=== PATIENT | female | born 1945 | race Two or more races ===

== ENCOUNTER → 2018-02-26 | Emergency (ER) | payer OTHER ==
[~2018-02-26] VITALS: Ht 157.5 cm; Wt 102.5 kg
[~2018-02-26] MED LIST: ADEMPAS2.5 MG; ARICEPT10 MG; ASPIR 8181 MG; CLONAZEPAM2 M1; HUMULIN 70100 UNIT/2; HYDROCHLOROTHIA25 MG; LANTUS SOL100 UNIT/1; MICARDIS20 MG; NORVASC2.5 M1; PROZAC10 MG; SIMVASTATIN20 MG
== END | disposition home or self-care (01) ==
LOC: ER 19:43
DX: J45.998 Other asthma (principal); J11.1 Influenza due to unidentified influenza virus with other respiratory manifestations

== ENCOUNTER 2018-03-02 16:05 | Inpatient (IN) | payer OTHER ==
[~2018-03-02] VITALS: Ht 167.6 cm; Wt 102.5 kg
[2018-03-10] MEDS ORDERED: ZANTAC150 MG PO (16:07)
[2018-03-10] MEDS ORDERED: MEDROLPACK PO (16:07)
== END 2018-03-10 16:30 | disposition home or self-care (01) | DRG 202 ==
LOC: ER 16:05 → MEDI 03-03 11:54 → SEC-K 03-03 11:54 → MEDI 03-03 14:01
PROC: 3E0F7GC Introduction of Other Therapeutic Substance into Respiratory Tract, Via Natural or Artificial Opening (ICD-10-PCS; principal; 2018-03-03)
PROC: B246ZZZ Ultrasonography of Right and Left Heart (ICD-10-PCS; 2018-03-03)
DX: J45.41 Moderate persistent asthma with (acute) exacerbation (principal); J44.1 Chronic obstructive pulmonary disease with (acute) exacerbation; J44.0 Chronic obstructive pulmonary disease with (acute) lower respiratory infection; J20.9 Acute bronchitis, unspecified; G47.33 Obstructive sleep apnea (adult) (pediatric); I27.29 Other secondary pulmonary hypertension; R09.02 Hypoxemia; F32.89 Other specified depressive episodes; E03.8 Other specified hypothyroidism; E78.00 Pure hypercholesterolemia, unspecified; I10 Essential (primary) hypertension; E11.65 Type 2 diabetes mellitus with hyperglycemia; G30.8 Other Alzheimer's disease; F02.80 Dementia in other diseases classified elsewhere, unspecified severity, without behavioral disturbance, psychotic disturbance, mood disturbance, and anxiety

== ENCOUNTER 2018-05-28 10:43 | Emergency (ER) | payer OTHER ==
[~2018-05-28] VITALS: Ht 167.6 cm; Wt 102.1 kg
[~2018-05-28 10:43] MED LIST changes: +MEDROLPACK PO; +ZANTAC150 MG PO
[2018-05-28] MEDS ORDERED: ACETAZOLAMIDE250 MG (11:16)
== END 2018-05-28 21:41 | disposition home or self-care (01) ==
LOC: ER 10:43
DX: J44.1 Chronic obstructive pulmonary disease with (acute) exacerbation (principal); E11.65 Type 2 diabetes mellitus with hyperglycemia; J11.1 Influenza due to unidentified influenza virus with other respiratory manifestations

== ENCOUNTER 2023-08-19 13:14 | Inpatient (IN) | payer OTHER ==
[~2023-08-19] VITALS: Ht 165.1 cm; Wt 84.8 kg
[~2023-08-19 13:14] MED LIST changes: +ACETAZOLAMIDE250 MG
[2023-08-19] MEDS ORDERED: SYNTHROID50 MCG PO (13:44)
[2023-08-19] MEDS ORDERED: ADEMPAS2.5 MG PO (13:45)
[2023-08-19] MEDS ORDERED: ARICEPT5 MG PO (13:45)
[2023-08-19] MEDS ORDERED: FARXIGA10 MG PO (13:45)
[2023-08-19] MEDS ORDERED: EVISTA60 MG PO (13:45)
[2023-08-19] MEDS ORDERED: PROZAC20 MG PO (13:45)
[2023-08-19] MEDS ORDERED: CLONAZEPAM0.5 M1 PO (13:46)
[2023-08-19] MEDS ORDERED: SIMVASTATIN5 MG PO (13:47)
[2023-08-19 16:44] LABS: HEMATOCRIT 37.4 % (36.0-45.00); HEMOGLOBIN 12.5 g/dL (12.0-15.00); MEAN CELL VOLUME 83.9 fL (80.00-100.00); MEAN CORPUSCULAR HEMOGLOBIN 28.1 pg (27.00-32.0); MEAN CORPUSCULAR HGB CONC 33.5 g/dl (32.0-36.0); RED BLOOD COUNT 4.46 M/uL (4.00-6.00); RED CELL DISTRIBUTION WIDTH 14.1 % (11.5-14.5)
[2023-08-19 16:45] LABS: PLATELET COUNT 147 K/uL (150-450)
[2023-08-19 16:50] LABS: PH,URINE 5.5 (5.0-8.0); URINE APPEARANCE Clear; URINE BILIRRUBIN Negative (NEGATIVE); URINE BLOOD Large; URINE COLOR Yellow; URINE LEUKOCYTE Negative; URINE NITRATE Negative; URINE PROTEIN Negative (NEGATIVE)
[2023-08-19 16:53] LABS: URINE BACTERIA 27.7 uL (0.0-1933); URINE EPITHELIAL CELLS 14.9 uL (0.0-38.8); URINE RBC 81.3 uL (0.0-20.8); URINE WBC 10.4 uL (0.0-23.2)
[2023-08-19 16:56] LABS: URINE GLUCOSE >=1000 MG/DL (NEGATIVE)
[2023-08-19 17:20] LABS: ALBUMIN 2.8 gm/dL (3.4-5.0); BILIRUBIN TOTAL 0.62 mg/dL (0.3-1.2); BILIRUBIN,CONJUGATED 0.2 mg/dL (0.0-0.2); BILIRUBIN,UNCONJUGATED 0.42 mg/dL (0.0-0.6); CALCIUM 9.3 mg/dL (8.5-10.1); CREATININE SERUM 0.6 mg/dL (0.55-1.02); GFR 96.43; GLOBULINA 4.2 G/DL (2.4-3.5)
[2023-08-19 17:26] LABS: POTASSIUM 2.7 mEq/L (3.5-5.1)
[2023-08-20 06:36] LABS: ERYTHROCYTE SEDIMENTATION RATE 38 mm/hr
[2023-08-20 06:37] LABS: HEMATOCRIT 34.4 % (36.0-45.00); HEMOGLOBIN 11.7 g/dL (12.0-15.00); MEAN CORPUSCULAR HEMOGLOBIN 28.2 pg (27.00-32.0); PLATELET COUNT 136 K/uL (150-450); RED BLOOD COUNT 4.15 M/uL (4.00-6.00); RED CELL DISTRIBUTION WIDTH 14.4 % (11.5-14.5)
[2023-08-20 06:45] LABS: INR 1.03; PARTIAL THROMBOPLASTIN TIME 26.5 SECONDS (22.0-34.0); PROTHROMBIN TIME 10.8 SECONDS (9.0-11.5)
[2023-08-20 06:50] LABS: ALBUMIN 2.5 gm/dL (3.4-5.0); BILIRUBIN TOTAL 0.48 mg/dL (0.3-1.2); BILIRUBIN,CONJUGATED 0.17 mg/dL (0.0-0.2); BILIRUBIN,UNCONJUGATED 0.31 mg/dL (0.0-0.6); C-REACTIVE PROTEIN 3.44 MG/DL (0.00-0.29); CALCIUM 8.7 mg/dL (8.5-10.1); CHOL HDL RATIO 3.2 (0-5.0); CREATININE SERUM 0.51 mg/dL (0.55-1.02); GFR 116.33; GLOBULINA 3.2 G/DL (2.4-3.5); POTASSIUM 3.2 mEq/L (3.5-5.1); TOTAL PROTEIN 5.7 gm/dL (6.4-8.2)
[2023-08-20 08:46] LABS: URINE APPEARANCE Clear; URINE BILIRRUBIN Negative (NEGATIVE); URINE BLOOD Large; URINE COLOR Yellow; URINE LEUKOCYTE Negative; URINE NITRATE Negative; URINE PROTEIN Negative (NEGATIVE); URINE UROBILINOGEN 0.2 E.U./dl
[2023-08-20 08:48] LABS: URINE BACTERIA 18.8 uL (0.0-1933); URINE EPITHELIAL CELLS 2.1 uL (0.0-38.8); URINE RBC 336.5 uL (0.0-20.8); URINE WBC 6.9 uL (0.0-23.2)
[2023-08-20 09:20] LABS: URINE GLUCOSE >=1000 MG/DL (NEGATIVE)
[2023-08-21 08:11] LABS: INR 1.06; PARTIAL THROMBOPLASTIN TIME 27.4 SECONDS (22.0-34.0); PROTHROMBIN TIME 11.1 SECONDS (9.0-11.5)
[2023-08-21 12:16] LABS: ALBUMIN 2.5 gm/dL (3.4-5.0); BILIRUBIN TOTAL 0.55 mg/dL (0.3-1.2); CALCIUM 8.7 mg/dL (8.5-10.1); CREATININE SERUM 0.44 mg/dL (0.55-1.02); GFR 137.94; GLOBULINA 3.4 G/DL (2.4-3.5); POTASSIUM 3.36 mEq/L (3.5-5.1); TOTAL PROTEIN 5.9 gm/dL (6.4-8.2)
== END 2023-08-21 15:11 | disposition home or self-care (01) | DRG 641 ==
LOC: ER 13:14 → MEDI 22:01 → SEC-K 08-20 01:21 → MEDI 08-20 10:10
PROVIDERS: General Practice; Nurse Practitioner Family; ADMIT Specialist; ATTEND Specialist
PROC: 4A12X4Z Monitoring of Cardiac Electrical Activity, External Approach (ICD-10-PCS; principal; 2023-08-20)
DX: E87.6 Hypokalemia (principal); R19.7 Diarrhea, unspecified; R11.2 Nausea with vomiting, unspecified; E11.9 Type 2 diabetes mellitus without complications; Z79.4 Long term (current) use of insulin; Z79.85 Long-term (current) use of injectable non-insulin antidiabetic drugs

== ENCOUNTER 2025-03-30 11:48 | Emergency (ER) | payer OTHER ==
[~2025-03-30] VITALS: Ht 152.4 cm; Wt 74.8 kg
[~2025-03-30 11:48] MED LIST changes: +ADEMPAS2.5 MG PO; +ARICEPT5 MG PO; +CLONAZEPAM0.5 M1 PO; +EVISTA60 MG PO; +FARXIGA10 MG PO; +PROZAC20 MG PO; +SIMVASTATIN5 MG PO; +SYNTHROID50 MCG PO
[2025-03-30] MEDS ORDERED: TAPAZOLE5 MG PO (12:30)
[2025-03-30] MEDS ORDERED: KETOROLAC TROMETHAMINE 30 MG VIAL IM ONE (14:00)
== END 2025-03-30 16:04 | disposition home or self-care (01) ==
LOC: ER 11:48
DX: M16.11 Unilateral primary osteoarthritis, right hip (principal); M54.50 Low back pain, unspecified; E03.8 Other specified hypothyroidism; I10 Essential (primary) hypertension; E11.9 Type 2 diabetes mellitus without complications; Z79.4 Long term (current) use of insulin
CPT/HCPCS: 72100; 73503; 96372; 99283; J1885